=== PATIENT | male | born 1995 | race Caucasian/White ===

== ENCOUNTER 2017-04-14 20:51 | Emergency (ER) | payer OTHER ==
[2017-04-14 21:25] VITALS: TEMP 98.6; BMI 27.8
[2017-04-14] MEDS ORDERED: DIPHTH,PERTUSS(ACELL),TET VAC 0.5 ML VIAL IM ONE (21:27)
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
[2017-04-14 22:56] VITALS: BP 142/90; PULSE 110
--- NOTE | 2017-04-22 09:50 | EKG ---
Test Reason : Blood Pressure : / mmHG Vent. Rate : 137 BPM Atrial Rate : 137 BPM P-R Int : 000 ms QRS Dur : 086 ms QT Int : 378 ms P-R-T Axes : 000 056 036 degrees QTc Int : 570 ms SINUS TACHYCARDIA WITH SHORT MI NONSPECIFIC ST AND T WAVE ABNORMALITY ABNORMAL ECG WHEN COMPARED WITH ECG OF 03-FEB-2015 14:02, MI INTERVAL HAS DECREASED VENT. RATE HAS INCREASED BY 72 BPM T WAVE INVERSION NOW EVIDENT IN LATERAL LEADS Confirmed by RAMOS CALDERON MD ([id number]) on 04/22/2017 9:50:07 AM Referred By: Confirmed By:RAMOS CALDERON MD
== END 2017-04-15 00:19 | disposition home or self-care (01) ==
LOC: JER 20:51
PROC: 3E0234Z Introduction of Serum, Toxoid and Vaccine into Muscle, Percutaneous Approach (ICD-10-PCS; principal; 2017-04-14)
DX: S50.312A Abrasion of left elbow, initial encounter (principal); S80.212A Abrasion, left knee, initial encounter
CPT/HCPCS: 93005; 93010; 99281-25

== ENCOUNTER 2018-02-12 00:14 | Emergency (ER) | payer OTHER ==
[2018-02-12 00:18] VITALS: BP 153/79; PULSE 90; TEMP 98.1; BMI 27.9
[2018-02-12] MEDS ORDERED: IBUPROFEN 400 MG TABLET (FP) PO ONE ×2 (00:34→00:36)
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
== END 2018-02-12 01:07 | disposition home or self-care (01) ==
LOC: JER 00:14
DX: S60.012A Contusion of left thumb without damage to nail, initial encounter (principal); V49.49XA Driver injured in collision with other motor vehicles in traffic accident, initial encounter; Y92.414 Local residential or business street as the place of occurrence of the external cause; Y93.89 Activity, other specified; Y99.0 Civilian activity done for income or pay
CPT/HCPCS: 73130-TC-LR-FY; 99282-25

== ENCOUNTER 2018-04-14 19:04 | Emergency (ER) | payer OTHER ==
[2018-04-14 19:13] VITALS: BP 146/100; PULSE 72; TEMP 98; BMI 29.5
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
== END 2018-04-14 19:52 | disposition home or self-care (01) ==
LOC: JERFT 19:04
DX: S50.01XA Contusion of right elbow, initial encounter (principal); S80.211A Abrasion, right knee, initial encounter; W18.39XA Other fall on same level, initial encounter; Y93.02 Activity, running; Y92.89 Other specified places as the place of occurrence of the external cause; Y99.0 Civilian activity done for income or pay; Y35.891A Legal intervention involving other specified means, law enforcement official injured, initial encounter
CPT/HCPCS: 99281-25

== ENCOUNTER 2019-01-04 10:11 | Emergency (ER) | payer OTHER | END 2019-01-04 11:25 | disposition home or self-care (01) | LOC: JERFT 10:11 ==

== ENCOUNTER 2022-05-16 13:52 | Emergency (ER) | payer OTHER ==
[2022-05-16 14:07] VITALS: BP 167/85; PULSE 99; RESP 20; TEMP 98.2; BMI 28.7
== END 2022-05-16 16:34 | disposition home or self-care (01) ==
LOC: FER 13:52
DX: S81.851A Open bite, right lower leg, initial encounter (principal); W54.0XXA Bitten by dog, initial encounter
CPT/HCPCS: 99282-25

== ENCOUNTER 2024-04-19 09:17 | Emergency (ER) | payer OTHER ==
[2024-04-19] MEDS ORDERED: IBUPROFEN 400 MG TABLET (FP) PO ONE (09:34)
[2024-04-19] MEDS: IBUPROFEN 400 MG TABLET (FP) PO ONE (09:36)
[2024-04-19 10:01] VITALS: BP 147/107; PULSE 80; RESP 16; TEMP 98.1; BMI 30.8
== END 2024-04-19 09:50 | disposition home or self-care (01) ==
LOC: FER 09:17
DX: S80.212A Abrasion, left knee, initial encounter (principal); M25.532 Pain in left wrist; W01.0XXA Fall on same level from slipping, tripping and stumbling without subsequent striking against object, initial encounter; Y99.0 Civilian activity done for income or pay
CPT/HCPCS: 99283-25